=== PATIENT | male | born 1960 | race Caucasian/White ===

== ENCOUNTER → 2024-09-20 | Outpatient (CLI) | payer OTHER ==
[~2024-09-20] MED LIST: ALBU3IS INH; ALBU90OI61 INH; Bactrim Ds Tab1 EACH PO; DULERA 100 MCG/13 GM INH; HYDACE5 PO; MULVITMIND PO; NAPR550 PO; PRED20 PO; Percocet 5-3251 EACH PO; TIOT18 INH
[2024-09-20 14:09] LABS: Stool Occult Bld Immuno 1 Positive (NEGATIVE)
== END | disposition home or self-care (01) ==
LOC: LAB 11:00 → LAB SHORT 11:00
PROVIDERS: Physician Assistant
DX: Z12.11 Encounter for screening for malignant neoplasm of colon (principal)
CPT/HCPCS: G0328